=== PATIENT | female | born 1980 | race Two or more races ===

== ENCOUNTER 2018-10-29 16:46 | Emergency (ER) | payer BC, OTHER ==
[~2018-10-29] VITALS: Ht 157.5 cm; Wt 82.6 kg
[2018-10-29 19:58] LABS: Basophils # (auto) 0 uL; Basophils % (auto) 0.5 % (0.0-2.0); Eosinophils # (auto) 0.1 uL; Eosinophils % (auto) 1.5 % (0.0-7.0); Hemoglobin 14.4 g/dL (12.2-16.2); Lymphocytes # (auto) 1.7 uL; Lymphocytes % (auto) 23.7 % (10.0-50.0); Mean Corpuscular Hemoglobin 29.9 pg (28.0-32.0); Mean Corpuscular Hgb Conc. 33.6 g/dL (32.0-36.0); Monocytes # (auto) 0.5 uL; Monocytes % (auto) 7.3 % (0.0-12.0); Neutrophils # (auto) 4.8 uL; Platelet Count (auto) 160 10^3/uL (140-450); Red Blood Cells 4.83 10^6/uL (4.0-5.20); White Blood Cell 7.2 10^3/uL (4.4-10.8)
[2018-10-29 20:25] LABS: Albumin 3.6 g/dL (3.4-5.0); BUN/Creatinine Ratio 16.7; Calcium 9.2 mg/dL (8.5-10.1); Potassium 3.3 mmol/L (3.5-5.1)
[2018-10-29 20:28] LABS: Bilirubin, Total 0.3 mg/dL (0.2-1.0); Total Protein 7.9 g/dL (6.4-8.2)
[2018-10-29 22:22] VITALS: BP 107/73
== END 2018-10-29 23:32 | disposition home or self-care (01) ==
LOC: ER 16:52
DX: O20.0 Threatened abortion (principal); O24.911 Unspecified diabetes mellitus in pregnancy, first trimester; Z3A.12 12 weeks gestation of pregnancy; Z91.018 Allergy to other foods
CPT/HCPCS: 36415; 76801; 80053; 84702; 85025; 94761

== ENCOUNTER 2023-05-31 13:49 | Emergency (ER) | payer BC, OTHER ==
[~2023-05-31] VITALS: Ht 157.5 cm; Wt 80.8 kg
[2023-05-31] MEDS ORDERED: CYCL-837 PO (21:16)
[2023-05-31] MEDS ORDERED: ACET500T58 PO (21:16)
[2023-05-31 21:50] VITALS: BP 118/87; PULSE 83; RESP 18; TEMP 97.9; O2SAT 97
== END 2023-05-31 21:58 | disposition home or self-care (01) ==
LOC: ER 13:49
DX: S16.1XXA Strain of muscle, fascia and tendon at neck level, initial encounter (principal); S39.012A Strain of muscle, fascia and tendon of lower back, initial encounter; S29.012A Strain of muscle and tendon of back wall of thorax, initial encounter; E11.9 Type 2 diabetes mellitus without complications; V43.52XA Car driver injured in collision with other type car in traffic accident, initial encounter; Y93.89 Activity, other specified; Y92.69 Other specified industrial and construction area as the place of occurrence of the external cause; Y99.8 Other external cause status